=== PATIENT | male | born 1965 | race Caucasian/White ===

== ENCOUNTER 2022-12-29 13:56 | Emergency (ER) | payer BC, SELFPAY ==
[2022-12-29 13:58] VITALS: BP 149/78; PULSE 68; RESP 20; TEMP 37.2; O2SAT 97
[2022-12-29] MEDS: LORATADINE 10 MG TABLET 20 MG PO (14:31)
[2022-12-29] MEDS: FAMOTIDINE 20 MG/2 ML VIAL IV PUSH (14:36)
[2022-12-29] MEDS: methylPREDNISolone SOD SUCC 125 MG VIAL IV PUSH (14:36)
--- NOTE | 2022-12-29 15:10 | ED.GENADULT ---
HPI - General Adult General Chief complaint: Skin/Abscess/Foreign Body Stated complaint: allergic reaction/bee sting Time Seen by Provider: 12/29/22 14:03 History of Present Illness HPI narrative: the patient is a 57-year-old male who was stung in his left posterior lower leg at the ankle yesterday by a bee. This has resulted in swelling of the area involving the lower leg and foot. He has taken 1 dose of Benadryl 25 mg last night which made him go to sleep. The swelling has continued. He presents for further evaluation. No dyspnea or sensations of thickening of the tongue or lips or tingling of the throat. No wheezing or stridor. No barking cough. No other rash elsewhere. No urticaria. No previous similar reaction to bee stings in the past. Related Data Allergies Allergy/AdvReac Type Severity Reaction Status Date / Time No Known Allergies Allergy Mild Verified 12/29/22 14:06 Review of Systems Review of Systems: All systems reviewed & are unremarkable except as noted in HPI and below Constitutional: Constitutional: Denies chills, Denies excessive sweating, Denies fatigue, Denies fever(s), Denies headache(s) and Denies weakness Eyes: Eyes: Denies change in vision and Denies photophobia ENT: Denies dysphagia, Denies dizziness, Denies headache(s), Denies lip swelling, Denies nasal congestion, Denies sore throat and Denies tongue swelling Cardiovascular: Cardiovascular: Denies chest pain, Denies syncope, Denies rapid heart rate and Denies dyspnea Respiratory: Respiratory: Denies cough, Denies dyspnea and Denies wheezing Gastrointestinal: Gastrointestinal: Denies abdominal pain, Denies constipation, Denies dysphagia, Denies diarrhea, Denies nausea and Denies vomiting Genitourinary: Genitourinary: Denies hematuria, Denies dysuria, Denies urinary frequency and Denies urinary urgency Musculoskeletal: Musculoskeletal: Denies back pain, Denies myalgias, Denies arthralgias, Denies joint swelling and Denies numbness Integumentary/Breasts: Skin/Breast: Denies pruritus, Reports erythema and Reports rash Neurologic: Denies confusion, Denies dizziness, Denies syncope, Denies headache(s), Denies focal weakness, Denies numbness and Denies weakness Psychiatric: Psychiatric: Denies anxiety and Denies confusion Endocrine: Endocrine: Denies excessive sweating and Denies fatigue Hematologic/Lymphatic: Hematologic/Lymphatic: Denies easy bleeding and Denies easy bruising Allergic/Immunologic: Allergic/Immunologic: Denies lip swelling, Denies tongue swelling and Denies wheezing PMFSH Social History Social History Alcohol intake: current Exam Const: General: healthy appearing, no acute distress, alert and well nourished Nutritional Appearance: well nourished Orientation/consciousness: patient oriented x3 Limitations: no limitations HENMT: Head: normal to inspection Ears: external ears normal Face/Nose/Sinus: normal facial exam Face and sinus: normal facial exam Mouth: Yes moist mucous membranes Throat: posterior oropharynx normal Other: No swelling of the uvula or lips or tongue. Eyes: Conjunctivae: conjunctivae normal Pupils: Equal, round and reactive pupils present EOM: EOMs intact bilaterally Neck: Neck: normal visual inspection and no meningeal signs Chest: Chest palpation & inspection: normal inspection of the chest and no tenderness Resp: Effort & Inspection: normal respiratory effort and not labored Auscultation: clear to auscultation bilaterally, no crackles, no rhonchi and no wheezes Cardio: Rate: regular rate Rhythm: regular rhythm Heart sounds: no murmurs GI: Inspection: non-distended GI Palp: Yes Soft to palpation, No Tenderness to palpation present (GI), No Guarding due to palpation present (GI) and No Rebound tenderness present : General: Yes no CVA tenderness Back/Spine/Pelvis: Back: no CVA tenderness Cervical Spine: No Cervical spine te
[2022-12-29 15:15] VITALS: BP 138/79; PULSE 68; RESP 18; O2SAT 99
--- NOTE | 2022-12-29 15:15 | PC.NURSE ---
PT IS UP WALKING AROUND, REPORTS HE IS READY TO GO. NO RESP DISTRESS. NOTED. ANKLE REMAINS SWOLLEN.
== END 2022-12-29 15:15 | disposition home or self-care (01) ==
PROVIDERS: Emergency Provider Emergency Medicine; PCP Family Medicine
DX: T63.441A Toxic effect of venom of bees, accidental (unintentional), initial encounter (principal); M79.89 Other specified soft tissue disorders
CPT/HCPCS: 96374; 96375; 99284; A9270; J2930

== ENCOUNTER 2023-05-28 02:35 | Day surgery (SDC) | payer BC, SELFPAY ==
[2023-05-26 13:50] VITALS: BMI 27.3
--- NOTE | 2023-05-26 13:51 | PC.NURSE ---
Report to the Outpatient Waiting Room, entrance under the green pavilion located off [facility], at time _0730_ on date _05-28-2023_. Planned Procedure Time: _0930_. Time changes happen often and if your time is changed the preop area will call you the afternoon before. - You and your visitor will be asked to self-screen and do not enter if you have any COVID symptoms. - A mask is optional within the hospital at this time. Patients may have clear liquids (water, carbonated beverages, clear teas, apple juice) until 3 hours prior to surgery with a maximum of 20 ounces. - No food from midnight until time of surgery Follow bowel prep instructions given by Dr Hua's office. Take the following medications with a SIP of water the morning of surgery: None DO NOT STOP ANY OF YOUR OTHER PRESCRIPTION MEDICATIONS PRIOR TO SURGERY ?EXCEPT THE FOLLOWING Medications to discontinue per physician ____None Date to take last dose Please no make-up, nail irish, hairspray, perfume, deodorant, or body powder the day of surgery. No jewelry (including any body piercings) or valuables the day of surgery, leave them at home. Please take a shower or bath the night before, or the morning of, surgery with an antibacterial soap. Wear comfortable, loose fitting clothing. - Jewelry must be removed prior to entering the operating room. Rings and piercings that are not removed may be cut off. - The hospital will not accept responsibility for valuables. - Please leave all valuables, including medications, at home the day of surgery. If you are going home after surgery, a licensed home delivery driver must drive you home. - NO public transportation without another adult if you receive anesthesia. - We recommend that an adult stay with you for 24 hours following discharge. - We also recommend that you do not drive, make important decision, drink alcoholic beverages, or take any drugs that were not prescribed by your health care provider for at least 24 hours after your discharge time. Follow any additional instructions given to you from your surgeon. If you or anyone in your household have experienced Covid symptoms in the past week, please notify your surgeon or the nurse liaison at the phone number below for possible testing. Telephone instructions given to _wife Viky __and asked if any additional questions and then verbalized understanding. Patient advised to call surgeon office or pre surgery nurse liaison [phone] if any additional questions.
[2023-05-28] VITALS (7 sets, daily range): BP systolic 119–156; BP diastolic 72–95; PULSE 87–128; RESP 16–17; TEMP 36.1–36.3; O2SAT 97–100
--- NOTE | 2023-05-28 07:36 | WPDHPUPDATE1 ---
History and Physical Update Update Date/Time: 05/28/23 07:36 History and Physical has been reviewed, including an updated exam of the patient. There are NO changes in the patient's condition. Risks, benefits, and alternatives have been discussed and questions answered. Patient agrees to proceed with procedure.
[2023-05-28] MEDS: ACETAMINOPHEN 500 MG TABLET 1000 MG PO (08:13)
[2023-05-28] MEDS: KETOROLAC 15 MG/ML VIAL (*BKC) IV PUSH ×2 (08:13→10:15)
--- NOTE | 2023-05-28 08:53 | P.PNAN_ITS ---
Anes - Initial Pre Proc Eval Procedure: Operation Date: 05/28/23 09:30 Proposed Procedures p Anorectal Examination, Anal Fistulotomy Versus Anal Fistulectomy with Possible Seton Placement - Bennie Hua MD Date/Time: 05/28/23 08:53 Surgeon: Bennie Hua MD Pre Op Diagnosis: anal fistual Patient Data Age: 57 Gender: M Height: 1.78 m Weight: 85.8 kg Last Vital Signs Temp 97.3 F L 05/28/23 07:59 Pulse 87 05/28/23 07:59 Resp 16 05/28/23 07:59 BP 121/75 05/28/23 07:59 Pulse Ox 100 05/28/23 07:59 O2 Del Method Room Air 05/28/23 07:59 Allergies Allergy/AdvReac Type Severity Reaction Status Date / Time No Known Allergies Allergy Mild Verified 05/28/23 08:22 Home Medications Medication Instructions Recorded Confirmed Type epinephrine 0.3 mg/0.3 mL 0.3 mg (0.3 mL) IM Q5-15M PRN 02/16/23 05/28/23 Rx injection, auto-injector (EpiPen anaphylaxis #2 ea 2-Gabriel) Patient hx anesthesia problems: none Family hx anesthesia problems: none Results Review: All pre-operative results and documents have been reviewed as part of the pre- operative evaluation. PENDING SALE TO [facility] Past Medical History Medical History Arthritis Encounter for screening for malignant neoplasm of colon Encounter to establish care History of bee sting allergy (~12/2022) localized swelling left lower extremity after bee sting Perianal abscess Snoring Social History Social History Smoking status: Never smoker Tobacco type: smokeless tobacco Smokeless tobacco user: chewing tobacco Alcohol intake: current Drinks per week: 84 Substance use: never Living arrangements: with family Spiritual care concerns: No Anes - Eval Final PreProcedure Day of Procedure 05/28/23 08:53 Patient weight: obese Heart: regular rate and rhythm Lungs: clear to auscultation Airway: Mallampati scale class II Neurological: alert and oriented Last oral intake: >/= 8 hours ASA classification: II Emergent: no Anesthetic plan: proceed Anesthesia type and monitoring: general ETT and standard monitoring Results Review: All pre-operative results and documents have been reviewed as part of the pre- operative evaluation. Informed Consent: The patient's anesthetic plan and its attendant risks and benefits were discussed with the patient/family/POA. Questions were solicited and answers provided to the satisfaction of the patient/family/POA.
[2023-05-28] MEDS: ceFAZolin 2 GM/D5W 50 ML 2 GM/50 ML BAG IVPB (09:10)
[2023-05-28] MEDS: LIDO 1%/EPINEPHRINE 1:100,000 50 ML VIAL 30 ML INFILTRATE (09:34)
[2023-05-28] MEDS: LACTATED RINGERS 1,000 ML 30 ML IV CONT (10:29)
--- NOTE | 2023-05-28 11:08 | W.PM.PROC2 ---
Procedure Note - Detailed Date of Procedure 05/28/23 Pre-op Diagnosis Anal fistula Post-op Diagnosis Same ( Intersphincteric anal fistula) Procedure Performed Anoectal evaluation under anesthesia and anal fistulotomy Surgeon Bennie Hua MD Utility Gelatin [employer] BNONIE Orta Anesthesia General Indications Patient 57-year-old gentleman who has no prior history of drainage of perirectal abscess surgically but has been having longstanding issues with a chronically draining area in the left posterior portion of the perianal region. On examination office he appeared to have a anal fistula. He presents now for anorectal evaluation under anesthesia and anal fistulotomy versus anal fistulectomy. Findings The patient had a short 2cm fistula tract that extended in the intersphincteric groove. Some minor hemorrhoids were noted. No anal or distal rectal masses noted. Description of Procedure After informed consent was obtained patient brought to the operating room was placed under general endotracheal anesthesia on the gurney and then turned into the prone sumit-knife position on operating table. The buttocks were then taped apart the perianal region was then prepped and draped in usual sterile fashion. A time-out was then performed correctly identifying the patient as well as procedure to be performed. Perioperative IV antibiotics were given. First started by gently dilating the anal sphincters lubricated anal speculum. Some minor internal hemorrhoids were noted were not bleeding. Distal rectum and anal canal showed no evidence of any polyps or any other lesions. The patient had an external opening to the anal fistula at approximately the 11 o'clock position with the patient prone in the left posterior side. I placed a lacrimal probe through the external opening and identified a small internal opening in the anal canal. The fistula tract appeared to extend between the internal external sphincters in the intersphincteric groove. Upon careful palpation of the sphincter muscles with them stretched out on tension I was able to determine that I would need to divide about 1.5 cm of internal sphincter muscle to marsupialize the fistula tract. With the lacrimal probe in the fistula tract and then proceeded to marsupialize and open the tract utilizing electrocautery. Once this was done I then used a small curette to remove any chronic inflammatory and epithelialized tissue within the tract. I then proceeded to fulgurate with electrocautery the whole tract to obliterate the chronic inflammatory tissue and epithelialized tissue. Hemostasis was good. I then irrigated the anal canal and there was no bleeding in the anal canal. I then removed the anal speculum. I palpated the anal sphincters and the small defect in the internal sphincter muscle was noted but certainly the anal rectal ring of sphincter was not totally disrupted. The external sphincter was not on divided at all. I then injected 1% lidocaine mixed with 0.5% Marcaine with some epinephrine around the anal opening for a perianal block. I then injected 10cc each bilaterally for a pudendal nerve block as well. Hemostasis was good and then I cleaned the area and dressed with 4x4 gauze and ABD pad and disposable underwear. The patient tolerated the procedure well no complications. All sponges, needles, and instrument counts were correct at the end procedure. EBL was __25_cc. The patient was awakened and taken to recovery in stable and satisfactory condition. Implants None Estimated Blood Loss 25 Drains No Packing No Pathology None sent Complications No immediate complications Condition Stable Disposition PACU [facility] Billing Surgery - Charge Forward: Surgery Billing
== END 2023-05-28 12:05 | disposition home or self-care (01) ==
PROVIDERS: PCP Family Medicine; Visit Provider Surgery
PROC: (CPT 46275; principal; 2023-05-28 09:30)
DX: K60.3 Anal fistula (principal); F17.220 Nicotine dependence, chewing tobacco, uncomplicated
CPT/HCPCS: 46275; A9270; J0330; J0690; J1100; J1885; J2405; J2704; J3010; J7120

== ENCOUNTER 2024-06-05 00:38 | Day surgery (SDC) | payer BC, SELFPAY ==
[2024-05-25 11:05] VITALS: BMI 27.3
--- NOTE | 2024-06-05 06:41 | P.PNAN_ITS ---
Anes - Initial Pre Proc Eval Procedure: Operation Date: 06/05/24 11:00 Proposed Procedures p Screening Colonoscopy - Homer Verdugo DO Date/Time: 06/05/24 06:41 Surgeon: Homer Verdugo DO Pre Op Diagnosis: Screening for malignant neoplasm of colon Patient Data Age: 58 Gender: M Height: 1.75 m Weight: 84 kg Allergies Allergy/AdvReac Type Severity Reaction Status Date / Time No Known Allergies Allergy Mild Verified 06/05/24 09:38 Home Medications ?Medication ?Instructions ?Recorded ?Confirmed ?Type tadalafil 10 mg tablet (Cialis) 10 mg PO DAILY PRN sexual activity 01/06/24 05/25/24 Rx #30 tabs atorvastatin 20 mg tablet 20 mg PO QHS #30 tabs 04/13/24 06/05/24 Rx levothyroxine 100 mcg tablet 100 mcg PO . q.a.m. #30 tabs 04/13/24 06/05/24 Rx Patient hx anesthesia problems: none Family hx anesthesia problems: none Results Review: All pre-operative results and documents have been reviewed as part of the pre- operative evaluation. [facility] Past Medical History Medical History (Updated 04/13/24 @ 13:19 by Juan Mars MD) Mixed hyperlipidemia (~04/10/24) cholesterol 240, triglycerides 72, HDL 78, LDL 145 with ratio of 3.1 on 04/10/2024. Elevated fasting glucose fasting glucose 111 with hemoglobin A1c 5.2 on 04/10/2024. Hypothyroidism (acquired) (~04/10/24) TSH elevated at 10.51 on 04/10/2024. Excessive drinking alcohol 8-15 beers daily BMI 28.0-28.9,adult Overweight (BMI 25.0-29.9) Encounter for prostate cancer screening PSA 1.26 on 04/10/2024. Hypersomnia Male erectile dysfunction, unspecified Encounter for screening for malignant neoplasm of colon Snoring Perianal abscess Encounter to establish care Arthritis History of bee sting allergy (~12/2022) localized swelling left lower extremity after bee sting Surgical History Surgical History (Updated 06/09/23 @ 14:41 by Gina Call, AUDREY) History of rectal surgery Anoectal evaluation under anesthesia and anal fistulotomy 05/28/23 SAW Social History Social History Smoking status: Never smoker Tobacco type: smokeless tobacco Smokeless tobacco user: chewing tobacco Alcohol intake: current Drinks per week: 84 Alcohol use details: beer (8 beers day) & 30 pack on the weekend Substance use: never Substance use type: does not use Living arrangements: with family Spiritual care concerns: No Anes - Eval Final PreProcedure Day of Procedure 06/05/24 06:41 Patient weight: overweight Heart: regular rate and rhythm Lungs: clear to auscultation Airway: Mallampati scale class II Neurological: alert and oriented Last oral intake: >/= 8 hours ASA classification: III Emergent: no Anesthetic plan: proceed Anesthesia type and monitoring: general GIVS and standard monitoring Results Review: All pre-operative results and documents have been reviewed as part of the pre- operative evaluation. Informed Consent: The patient's anesthetic plan and its attendant risks and benefits were discussed with the patient/family/POA. Questions were solicited and answers provided to the satisfaction of the patient/family/POA.
[2024-06-05 09:39] VITALS: BP 140/83; PULSE 85; RESP 16; TEMP 35.9; O2SAT 97; BMI 27.7
[2024-06-05] MEDS: LACTATED RINGERS 1,000 ML 150 ML IV CONT (09:50)
--- NOTE | 2024-06-05 10:09 | PM.IMHP ---
H&P: HPI History of Present Illness Date/Time: 06/05/24 10:09 Chief Complaint: Screening for colorectal cancer Narrative: This is a 58-year-old man who presents for his 1st colonoscopy. He denies any hematochezia melena. He denies any family history of colon cancer. Review of Systems Review of Systems: All systems reviewed & are unremarkable except as noted in HPI and below Constitutional: Constitutional: Denies chills, Denies fever(s), Denies headache(s) and Denies weight loss Eyes: Eyes: Denies change in vision ENT: Denies dizziness, Denies headache(s), Denies neck mass and Denies throat swelling Cardiovascular: Cardiovascular: Denies chest pain, Denies lightheadedness and Denies dyspnea Respiratory: Respiratory: Denies cough, Denies dyspnea and Denies wheezing Gastrointestinal: Gastrointestinal: Denies abdominal pain, Denies change in bowel habits, Denies nausea and Denies vomiting Genitourinary: Genitourinary: Denies hematuria and Denies dysuria Musculoskeletal: Musculoskeletal: Reports as per HPI Integumentary/Breasts: Skin/Breast: Reports as per HPI Neurologic: Denies dizziness and Denies headache(s) Allergic/Immunologic: Allergic/Immunologic: Denies throat swelling and Denies wheezing PMFSH Past Medical History Medical History (Updated 04/13/24 @ 13:19 by Juan Mars MD) Mixed hyperlipidemia (~04/10/24) cholesterol 240, triglycerides 72, HDL 78, LDL 145 with ratio of 3.1 on 04/10/2024. Elevated fasting glucose fasting glucose 111 with hemoglobin A1c 5.2 on 04/10/2024. Hypothyroidism (acquired) (~04/10/24) TSH elevated at 10.51 on 04/10/2024. Excessive drinking alcohol 8-15 beers daily BMI 28.0-28.9,adult Overweight (BMI 25.0-29.9) Encounter for prostate cancer screening PSA 1.26 on 04/10/2024. Hypersomnia Male erectile dysfunction, unspecified Encounter for screening for malignant neoplasm of colon Snoring Perianal abscess Encounter to establish care Arthritis History of bee sting allergy (~12/2022) localized swelling left lower extremity after bee sting Surgical History Surgical History (Updated 06/09/23 @ 14:41 by Gina Call, [facility]) History of rectal surgery Anoectal evaluation under anesthesia and anal fistulotomy 05/28/23 SAW Social History Social History Smoking status: Never smoker Tobacco type: smokeless tobacco Smokeless tobacco user: chewing tobacco Alcohol intake: current Drinks per week: 84 Alcohol use details: beer (8 beers day) & 30 pack on the weekend Substance use: never Substance use type: does not use Living arrangements: with family Spiritual care concerns: No Meds Home Medications and Allergies Home Medications ?Medication ?Instructions ?Recorded ?Confirmed ?Type tadalafil 10 mg tablet (Cialis) 10 mg PO DAILY PRN sexual activity 01/06/24 05/25/24 Rx #30 tabs atorvastatin 20 mg tablet 20 mg PO QHS #30 tabs 04/13/24 06/05/24 Rx levothyroxine 100 mcg tablet 100 mcg PO . q.a.m. #30 tabs 04/13/24 06/05/24 Rx Allergies Allergy/AdvReac Type Severity Reaction Status Date / Time No Known Allergies Allergy Mild Verified 06/05/24 09:38 Vital Signs Vital Signs - 24 hr 06/05/24 09:39 Temperature 96.6 F L Pulse Rate 85 Respiratory Rate 16 Blood Pressure 140/83 Pulse Oximetry 97 Oxygen Delivery Room Air Exam Const: General: no acute distress and alert Orientation/consciousness: patient oriented x3 HENMT: Head: normocephalic and atraumatic Ears: hearing grossly normal bilaterally Face/Nose/Sinus: Normal nares present Mouth: Yes Normal oral and palatal mucosa present Eyes: Periorbital: periorbital findings normal Sclera: sclerae normal EOM: EOMs intact bilaterally Neck: Neck: normal visual inspection, no lymphadenopathy and trachea midline Chest: Chest palpation & inspection: normal inspection of the chest Resp: Effort & Inspection: normal respiratory effort Auscultation: clear to auscultation bilaterally Cardio: Jugular venous distension: no JVD Rate: regular rate Rhythm: regular rhythm Heart sounds: S1 normal heart sound present and S2 normal heart sound present Peripheral pulses: Peripheral pulses 2+ throughout GI: Inspection: normal to inspection GI Palp: Yes Soft to palpation, No Tenderness to palpation present (GI), No Guarding due to palpation present (GI) and No Rebound tenderness present Percussion: Yes normal to percussion Auscultation: normal bowel sounds : General: Yes no CVA tenderness Back/Spine/Pelvis: Back: no CVA tenderness Neuro: General: patient oriented x3, no focal motor deficits and CN's II-XI intact bilaterally Cognition (Neuro): normal cognition Speech: normal speech Motor exam (neuro): 5/5 motor strength present throughout Extrem: General: capillary refill normal and no clubbing, cyanosis or edema Assessment and Plan Assessment and plan (1) Encounter for screening for malignant neoplasm of colon: Code(s): Z12.11 - Encounter for screening for malignant neoplasm of colon Status: Acute Assessment and Plan: I have recommended colonoscopy. I have discussed the procedure, risks, benefits, and alternatives. Questions were answered. Patient is agreeable to proceed.
[2024-06-05 10:27] VITALS: BP 108/74; PULSE 84; RESP 20; O2SAT 95
[2024-06-05 10:37] VITALS: BP 105/76; PULSE 82; RESP 20; O2SAT 97
[2024-06-05 10:47] VITALS: BP 129/86; PULSE 73; RESP 20; O2SAT 98
--- OUTSIDE RECORDS SUMMARY | 2024-06-10 09:39 | XMS_ITS | Encounter Summary ---
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
--- OUTSIDE RECORDS SUMMARY | 2024-06-10 09:39 | XMS_ITS | Encounter Summary ---
Author Organization [facility] Address [address] [place] [address] Phone Care Team Providers Care Manager Material Name Role Phone Juan Mars MD Primary Care Provider [phone] Encounter Details Date Type Department Care Team (Late st Contact Info) Description 12/02/2023 Telephone 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
--- OUTSIDE RECORDS SUMMARY | 2024-06-10 09:39 | XMS_ITS | Referral Summary ---
Author Organization [facility] Address [address] [place] [address] Care Team Providers Care Rapier Insertion Loom Fixer Name Role Phone Juan Mars MD Primary Care Provider [phone] [phone] Allergies No known active allergies Medications tadalafiL (CIALIS) 20 mg tablet Take 0.5 tablets (10 mg total) by mouth every third day as needed for erectile dysfunction 5 tablet 1 4 Active Active Problems Problem Noted Date Diagnosed Date Other male erectile dysfunction 12/07/202309/2023 Overview (12/07/2023): Started him on tadalafil 10 mg 09/2023, which works well. 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 Gender Identity Not on file Sexual Orientation Not on file Last Filed Vital Signs Vital Sign Reading Time Taken Comments Blood Pressure - - Pulse - - Temperature - - Respiratory Rate - - Oxygen Saturation - - Inhaled Oxygen Concentration - - Weight 83.9 kg (185 lb) 10/18/2023 9:28 AM CDT Height 175.3 cm (5' 9 ) 10/18/2023 9:28 AM CDT Body Mass Index 27.32 10/18/2023 9:28 AM CDT Plan of Treatment Not on file Insurance [facility] [place] [address] Care Teams Rapier Insertion Loom Fixer Relationship Specialty Start Date End Date Juan Mars MD [address] [address] PCP - General Family Medicine 10/08/23
--- OUTSIDE RECORDS SUMMARY | 2024-06-10 09:39 | XMS_ITS | Encounter Summary ---
Author Organization [facility] Address [address] [place] [address] Phone Care Team Providers Care Program Project Analyst Name Role Phone Juan Mars MD Primary Care Provider [phone] [phone] Encounter Details Date Type Department Care Team (Late st Contact Info) Description 12/31/2023 Orders Only 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
--- OUTSIDE RECORDS SUMMARY | 2024-06-10 09:39 | XMS_ITS | Clinical Summary ---
Author Organization [facility] Address [address] [place] [address] Care Team Providers Care Professional Fee Coder Name Role Phone Juan Mars MD Primary Care Provider [phone] [phone] Allergies No known active allergies Medications tadalafiL [...] on file Legal Sex Male 9:02 PM [employer] Gender Identity Not on file Sexual Orientation Not on file Obstetrics History Last Filed Vital Signs Vital Sign Reading Time Taken Comments Blood Pressure - - Pulse - - Temperature - - Respiratory Rate - - Oxygen Saturation - - Inhaled Oxygen Concentration - - Weight 83.9 kg (185 lb) 10/18/2023 9:28 AM CDT Height 175.3 cm (5' 9 ) 10/18/2023 9:28 AM CDT Body Mass Index 27.32 10/18/2023 9:28 AM CDT Plan of Treatment Health Maintenance Due Date Last Done Comments Colon Cancer Screening-Colonoscopy 1964 Depression Screening 1964 Hepatitis C Screening 1964 Prostate Cancer Screening-PSA 1964 DTaP/Tdap/Td Vaccine (1 - Tdap) 11/07/1975 Hepatitis B Screening 1982 Regular Well Visit/Exam 18-64 1982 Zoster Vaccine (1 of 2) 2014 Influenza Vaccine (#1) 2024 Pneumococcal vaccine <65 Aged Out No longer eligible based on patient's age to complete this topic Insurance [facility] [place] [place] [address] Care Teams Professional Fee Coder Relationship Specialty Start Date End Date Juan Mars MD [address] [address] PCP - General Family Medicine 10/08/23
--- OUTSIDE RECORDS SUMMARY | 2024-06-10 09:39 | XMS_ITS | Encounter Summary ---
Author Organization [facility] Address [address] [facility] [address] [place] [address] Phone Care Team Providers Care Crossing Supervisor Name Role Phone Juan Mars MD Primary Care Provider [phone] [phone] Reason for Visit * Consultation (Routine) - Authorized Specialty Diagnoses / Procedures Referred By Contac t Referred To Contact Urology Diagnoses Overactive bladder Referral, Self [facility] (All Locations) Referral ID Status Reason Start Date Expiration Date Visits Requested Visits Authorized [id number] Authorized Specialty Services Required 10/08/2023 2024 99 99 Encounter Details Date Type Department Care Team (Late st Contact Info) Description 10/18/2023 10:00 AM CDT Office Visit [facility] [address] [facility] Office Building [address] [place] [phone] Michelle Caballero, CHOCOLATE FINISHER [address] [facility] [place] [address] Erectile dysfunction, unspecified erectile dysfunction type (Primary Dx); Urinary frequency; Nocturia Social History Tobacco Use Types Packs/Day Years Used Date Smoking Tobacco: Never Smokeless Tobacco: Current Chew Tobacco Cessation:Ready to Q uit: Not Asked; Counseling Given: Not Answered Personal Safety Answer Date Recorded Getting School Help Needed Not on file 10/07 Sex and Gender Information Value Date Recorded Sex Assigned at Not on file 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 Gender Identity Not on file Sexual Orientation Not on file documented as of this encounter Last Filed Vital Signs Vital Sign Reading Time Taken Comments Blood Pressure - - Pulse - - Temperature - - Respiratory Rate - - Oxygen Saturation - - Inhaled Oxygen Concentration - - Weight 83.9 kg (185 lb) 10/18/2023 9:28 AM CDT Height 175.3 cm (5' 9 ) 10/18/2023 9:28 AM CDT Body Mass Index 27.32 10/18/2023 9:28 AM CDT documented in this encounter Ordered Prescriptions Prescription Sig Dispense Quantity Refills Last Filled Start Date End Date tadalafiL (CIALIS) 20 mg tablet Take 0.5 tablets (10 mg total) by mouth every third day as needed for erectile dysfunction for up to 10 doses 5 tablet 10/18/2023 4 documented in this encounter Progress Notes * Michelle Caballero, BETH - 10/18/2023 10:00 AM CDT Chief Complaint Urinary frequency History of Present Illness The patient is a 57 y.o. year old male presenting to the clinic today for an evaluation for overactive bladder. He is here today with his and complains of urinary frequency and nocturia. He reports urinary frequency, urinating 6-7 times per day and gets up at night 2 times per night. Urinary stream is okay. Denies any difficulty urinating. He does feel he empties his bladder. Urinaryurgency only if he holds his bladder too long. Denies urinary incontinence. Denies urinary tract infection. Denies constipation. Denies history of urethral stricture. Drinks 1 quart of tea per day, 1cup of coffee with caffeine per day, 1 glass of water per day, 8-9 beers per night. He does not stop fluids prior to bed. Denies any medications or treatments for his bladder or prostate. He is mostly bothered by his urinary frequency and nocturia. The patient states has had erectile dysfunction for several years. The last time he had successful intercourse has been a few years, the same with masturbation. He is able to obtain an erection for acouple of minutes and at 50% maximum rigidity. He does not have morning erections. He does have the desire for sexual intercourse. He does not have any issues with the relationship as far as sexual intercourse but his does. He does have someperformance anxiety. He has never discussed this issue in the past due to being uncomfortable. Urine dip today - I reviewed wnl Measurement of post-voiding residual urine and/or bladder capacity by ultrasound, non-imaging. PVR = 7 ml Review of Systems Review of Systems Constitutional: Negative for fever. Gastrointestinal: Negative for abdominal distention, abdominal pain and constipation. Genitourinary: Positive for frequency. Negative for difficulty urinating, dysuria, flank pain and urgency. Subjective/Objective No current outpatient medications on file. No current facility-administered medications for this visit. Physical Exam Physical Exam HENT: Head: Normocephalic. Nose: Nose normal. Pulmonary: Effort: Pulmonary effort is normal. Musculoskeletal: Cervical back: Normal range of motion. Skin: General: Skin is warm and dry. Neurological: Mental Status: He is alert. Assessment/Plan Lower urinary tract symptoms -acute and uncomplicated. Discussed dietary modifications with the patient. The patient will try to limit caffeine intake, increase water intake and stop drinking fluids 3 hours prior to bed. I also discussed the relationship between beer intake and how this affects urination. The patient did not seem like he wanted to limit his beer intake but did state he might try. Erectile dysfunction -chronic and stable. We discussed medication options and he would like to try tadalafil (cialis). We reviewed side effects, which include but is not limited to headache, flushing, back pain, sinusitis and priapism. The patient verbalizes understanding of side effects and knows to go to the emergency room if an erection becomes painful and/or lasts longer than 4 hours. The patient is agreeable to start medication and will follow up in 4 weeks to discuss how the medication isworking. He declines in office visit to follow up and prefers phone call. Moderate risk documented in this encounter Plan of Treatment Not on file documented as of this encounter Procedures Procedure Name Priority Date/Time Associated Diagnosis Comments POCT URINALYSIS DIPSTICK Routine 10/18/2023 9:46 AM CDT Urinary frequency MEASURE POST VOID RESIDUAL Routine 10/18/2023 Urinary frequency documented in this encounter Results * POCT urinalysis dipstick (10/18/2023 9:46 AM CDT) Color, Urine, POC Yellow Clarity, ur, POC Clear Clear Glucose, ur, POC Negative Negative MG/DL Ketones, ur, POC Negative Negative Blood, ur, POC Negative Negative pH, ur, POC 5.0 5.0 - 8.0 Protein, ur, POC Negative Negative Nitrite, ur, POC Negative Negative Leukocytes, ur, POC Negative Negative Lot Number x Urine 10/18/2023 9:46 AM CDT us Michelle Caballero NP POINT OF CARE TEST ORDERABL ES Final Result * Measure post void residual (10/18/2023) Narrative Michelle Colby LPN - 10/18/2023 Measurement of Post Voiding Residual Urine and/or bladder capacity by US, non-imaging. PVR = ??7 ml us Michelle Caballero CHOCOLATE FINISHER NURSING ASSESSMENTS Final R esult documented in this encounter Visit Diagnoses Diagnosis Erectile dysfunction, unspecified erectile dysfunction type- Primary Urinary frequency Nocturia documented in this encounter Orders Outpatient Referral Count Last Ordered Date Fir st Ordered Date AMB REFERRAL TO UROLOGY 1 10/18/2023 documented in this encounter Care Teams Crossing Supervisor Relationship Specialty Start Date End Date Juan Mars MD [address] [address] PCP - General Family Medicine 10/08/23 documented as of this encounter
--- OUTSIDE RECORDS SUMMARY | 2024-06-10 09:39 | XMS_ITS | Encounter Summary ---
Author Organization [facility] Address [address] [facility] [address] [place] [address] Phone Care Team Providers Care Channel Rougher Name Role Phone Juan Mars MD Primary Care Provider [phone] [phone] Encounter Details Date Type Department Care Team (Late st Contact Info) Description 01/01/2024 Orders Only [facility]rology [address] [facility] Medical Office Building [address] [place] [phone] Michelle Caballero NP [address] [facility] [place], [place] [id number] Social History Tobacco Use Types Packs/Day Years Used Date Smoking Tobacco: Never Smokeless Tobacco: Current Chew Personal Safety Answer Date Recorded Getting School Help Needed Not on file 10/19 Sex and Gender Information Value Date Recorded Sex Assigned at Not on file 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5 tablets (10 mg total) by mouth every third day as needed for erectile dysfunction for up to 10 doses Reorder 12/07/2023 01/01/2024 documented as of this encounter Care Teams Channel Rougher Relationship Specialty Start Date End Date Juan Mars MD [id number] [address] PCP - General Family Medicine 10/08/23 documented as of this encounter
--- OUTSIDE RECORDS SUMMARY | 2024-06-10 09:39 | XMS_ITS | Encounter Summary ---
Author Organization [facility] Address [address] [place] [address] Phone Care Team Providers Care Dolly Pusher Name Role Phone Juan Mars MD Primary Care Provider [phone] [phone] Encounter Details Date Type Department Care Team (Late st Contact Info) Description 11/26/2023 Telephone [facility] [address] [place] [address] Grisel Galvez Social History Tobacco Use Types Packs/Day Years Used Date Smoking Tobacco: Never Smokeless Tobacco: Current Chew Personal Safety Answer Date Recorded Getting School Help Needed Not on file 10/19 Sex and Gender Information Value Date Recorded Sex Assigned at Not on file 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 Thanks! Patient Provider: [facility] Information: Outcome/Plan: documented in this encounter Plan of Treatment Not on file documented as of this encounter Visit Diagnoses Not on filedocumented in this encounter Care Teams Dolly Pusher Relationship Specialty Start Date End Date Juan Mars MD [address] [id number] PCP - General Family Medicine 10/08/23 documented as of this encounter
== END 2024-06-05 11:00 | disposition home or self-care (01) ==
PROVIDERS: PCP Family Medicine; Visit Provider Surgery
PROC: 0DJD8ZZ Inspection of Lower Intestinal Tract, Via Natural or Artificial Opening Endoscopic (ICD-10-PCS; CPT 45378; principal; 2024-06-05 11:00)
DX: Z12.11 Encounter for screening for malignant neoplasm of colon (principal); K57.30 Diverticulosis of large intestine without perforation or abscess without bleeding; F17.220 Nicotine dependence, chewing tobacco, uncomplicated
CPT/HCPCS: 45378; J2704; J7120